=== PATIENT | female | born 1975 | race Caucasian/White ===

== ENCOUNTER 2016-11-11 18:58 | Emergency (ER) | payer SELFPAY ==
[~2016-11-11] VITALS: Ht 154.9 cm; Wt 45.0 kg
[2016-11-11] MEDS ORDERED: ACETAMINOPHEN 500MG TABLET PO ONE (22:15)
[2016-11-11] MEDS ORDERED: DIPHENHYDRAMINE 25MG CAPSULE PO ONE (22:15)
[2016-11-11 22:29] LABS: HEMATOCRIT. 34.9 % (36.0-48.0); HEMOGLOBIN. 11.6 g/dL (12.0-16.0); MEAN CORPUSCULAR HEMOGLOBIN 27.6 pg (28.0-32.0); MEAN CORPUSCULAR HGB CONC 33.3 g/dL (31.0-37.0); MEAN PLATELET VOLUME 10.3 fl (7.4-10.4); PLATELET 139 x1000/uL (130-400); WHITE BLOOD COUNT 3.2 x1000/uL (4.5-11.0)
[2016-11-11 22:35] LABS: DIFFERENTIAL COMMENT 1
[2016-11-11 22:53] LABS: ATYPICAL LYMPHOCYTES 3; PLATELET ESTIMATE SLIGHTLY DECREASED
[2016-11-12 00:48] LABS: HCG SCREEN NEGATIVE
[2016-11-12 01:10] VITALS: BP 97/50
== END 2016-11-12 01:29 | disposition home or self-care (01) ==
LOC: ER 18:59
DX: B01.9 Varicella without complication (principal); R05 Cough
CPT/HCPCS: 36415; 71010; 84703; 85025; 86787; 99285; Z7610; Q0163